=== PATIENT | male | born 1950 | race Caucasian/White ===

== ENCOUNTER 2019-07-14 13:46 | Emergency (ER) | payer OTHER ==
[~2019-07-14] VITALS: Ht 170.2 cm; Wt 91.0 kg
[2019-07-14] MEDS ORDERED: QUINAPRIL20 MG PO (14:03)
[2019-07-14] MEDS ORDERED: GLIPIZIDE5 MG PO (14:03)
[2019-07-14] MEDS ORDERED: METFORMIN500 MG PO (14:03)
[2019-07-14] MEDS ORDERED: JANUVIA100 MG PO (14:03)
[2019-07-14] MEDS ORDERED: CITALOPRAM10 M1 PO (14:04)
[2019-07-14] MEDS ORDERED: AMLODIPINE BESY10 MG PO (14:04)
[2019-07-14] MEDS ORDERED: AMOXICILLIN500 MG PO (14:57)
[2019-07-14 15:04] VITALS: BP 126/79
== END 2019-07-14 15:04 | disposition home or self-care (01) | DRG 605 ==
LOC: ED 13:46 → EDBD 13:46 → ED 14:21
PROC: 0HQGXZZ Repair Left Hand Skin, External Approach (ICD-10-PCS; principal; 2019-07-14)
DX: S61.412A Laceration without foreign body of left hand, initial encounter (principal); I10 Essential (primary) hypertension; E11.9 Type 2 diabetes mellitus without complications; W26.8XXA Contact with other sharp object(s), not elsewhere classified, initial encounter; Y93.89 Activity, other specified; Z79.84 Long term (current) use of oral hypoglycemic drugs